=== PATIENT | male | born 1955 | race Caucasian/White ===

== ENCOUNTER 2019-02-03 10:28 | Observation (INO) | payer MEDICARE, OTHER ==
[2019-02-03] VITALS (24 sets, daily range): BP systolic 97–155; BP diastolic 52–97; PULSE 62–100; RESP 14–20; Ht 177.8 cm; Wt 72.0 kg
[~2019-02-03] VITALS: Ht 177.8 cm; Wt 72.0 kg
[~2019-02-03 10:28] MED LIST: SEVOFLURANE 15 MIN ONE; SUCCINYLCHOLINE CHLORIDE 100 MG/5 ML SYG IV ONE
[2019-02-03] MEDS ORDERED: INSU100I12 SQ (11:03)
[2019-02-03] MEDS ORDERED: TRAM50TA2 ORAL (11:03)
[2019-02-03] MEDS ORDERED: LACTATED RINGER'S 1,000 ML IV SCH (11:30)
[2019-02-03] MEDS ORDERED: INSULIN REGULAR, HUMAN 100 UNIT/1 ML 3ML VIAL SC ONE (11:30)
--- NOTE | 2019-02-03 12:36 | HPN ---
Date/Time of Note Date/Time of Note DATE: 02/03/19 TIME: 12:36 Interval H&P Admission Note Pt. seen H&P reviewed: No system changes MIGUELITO HER MD February 03, 2019 12:36
--- NOTE | 2019-02-03 12:43 | PREAC ---
Date/Time of Note Date/Time of Note DATE: 02/03/19 TIME: 12:02 Anesthesia Eval and Record Evaluation Time Pre-Procedure Interview DATE: 02/03/19 TIME: 12:02 Age 63 Sex male NPO: 8 hrs Preoperative diagnosis Prostate Ca Planned procedure TURP Past Medical History Past Medical History: Includes Cardio: HTN, CAD, PTCA/Stent, Other (Pt not on plavix, reports is not required. Seen healthcare network consultant last week, cleared. denies cp on exertion. ) Endo: Diabetes Heme: Other (H/o DVT) Surgery & Anesthesia Issues No known issue Meds Anticoagulation: No Beta [place] within 24 hr: No Reason Beta [place] not given: Pt. not on B-[place] Reported Medications Insulin Lispro (Humalog Kwikpen U-100) 100 Unit/1 Ml Insuln.pen, 6 UNIT SQ TIDM A, EA 02/03/19 Tramadol HCl (Tramadol HCl) 50 Mg Tablet, 1 TAB ORAL TID 02/03/19 Current Medications Lactated Ringer's 1,000 ml @ 30 mls/hr Q24H IV Last administered on 02/03/19at 11:36; Admin Dose 30 MLS/HR; Start 02/03/19 at 11:30 Meds reviewed: Yes Allergies Coded Allergies: ibuprofen (Verified Allergy, Severe, anaphylactic shock, 02/03/19) Allergies Reviewed: Yes Labs/Studies Labs Reviewed: Reviewed by anesthesiologist test: N/A Studies: ECG Pre-procedure Exam Last vitals Vital Signs Date Temp Pulse Resp B/P (MAP) Pulse Ox O2 O2 Flow FiO2 Time Delivery Rate 02/03/19 97.7 100 16 124/76 98 Room Air 11:42 (92) Airway: Adequate mouth opening Mallampati: Mallampati II Teeth: Abnormal (adentulous) Lung: Normal Heart: Normal ASA Physical Status ASA physical status: 3 Emergency: None Planned Anesthetic General/MAC: LMA Pre-operative Attestations Prior to commencing anesthesia and surgery, the patient was re-evaluated, there was verification of: *The patient's identity *The results of appropriate recent lab work and preoperative vital signs *The above evaluation not changing prior to induction *Anesthetic plan, risk benefits, alternative and complications discussed with patient/family; questions answered; patient/family understands, accepts and wishes to proceed. NELL LIM MD February 03, 2019 12:13
[2019-02-03] MEDS ORDERED: LIDOCAINE 2% (SDV) 5 ML INJ ONE (12:52)
[2019-02-03] MEDS ORDERED: MIDAZOLAM 1 MG/ML 2 ML INJ ONE ×2 (12:52→13:23)
[2019-02-03] MEDS ORDERED: PROPOFOL 20 ML ONE (12:52)
[2019-02-03] MEDS ORDERED: FENTAnyl 50 MCG/ML VIAL ONE ×2 (12:52→13:38)
[2019-02-03] MEDS ORDERED: CEFAZOLIN 1 GM INJ ONE (12:52)
[2019-02-03] MEDS ORDERED: CEFTRIAXONE 1 GM INJ IVPB ONE (13:00)
[2019-02-03] MEDS ORDERED: CEFTRIAXONE 1 GM/50 ML (PMX) 50 ML IVPB SCH (13:00)
[2019-02-03] MEDS ORDERED: ROCURONIUM 50 MG INJ ONE (13:06)
[2019-02-03] MEDS ORDERED: ONDANSETRON 4 MG INJ ONE (13:06)
[2019-02-03] MEDS ORDERED: DEXAMETHASONE 4 MG/ML 5 ML INJ ONE (13:06)
[2019-02-03] MEDS ORDERED: PHENYLephrine (100 MCG/ML) 10ML SYG ONE (13:26)
[2019-02-03] MEDS ORDERED: MEPERIDINE 25 MG INJ IV PRN (14:00)
[2019-02-03] MEDS ORDERED: ONDANSETRON 4 MG INJ IV PRN ×2 (14:00→15:30)
[2019-02-03] MEDS ORDERED: DIPHENHYDRAMINE 50 MG INJ IV PRN (14:00)
[2019-02-03] MEDS ORDERED: HYDROmorphONE 1 MG/5 ML IV SYRINGE IV PRN (14:00)
[2019-02-03] MEDS ORDERED: SUGAMMADEX SODIUM 200 MG/2 ML VIAL IV ONE (14:18)
[2019-02-03] MEDS ORDERED: DEXTROSE 5%-0.45% NACL 1,000 ML IV SCH (14:35)
--- NOTE | 2019-02-03 14:35 | OPR ---
Date/Time of Note Date/Time of Note DATE: 02/03/19 TIME: 14:28 Operative Report Procedure Date: February 03, 2019 Preoperative Diagnosis Urinary retention, metastatic prostate cancer. Postoperative Diagnosis Same pending pathology report Operation/Procedure Performed Transurethral resection of the prostate Surgeon see signature line Engineering Scientist Aminah Monaco Anesthesia Type: general Anesthesiologist: NELL LIM MD Estimated Blood Loss: 10 - 50 ml's Transfusion none Specimen Prostatic tissue and prostatic stones Grafts/Implants none Complications none Pt Condition Post Procedure: stable Disposition: PACU Indications Urinary retention and patient failed multiple attempts to discontinue the Cheema catheter and see if he urinates on his own. Patient does have metastatic prostate cancer. Procedure Description The patient was brought to the operating room and general anesthesia was induced. Timeout was done, the patient was identified by his name, birthdate and the procedure. The patient was given 1 g of ceftriaxone IV at the start of the procedure. The old Cheema catheter that he had was removed. The genital area was then prepped and draped in the usual sterile manner. Cystoscopy was done with a 22 Serbian cystoscope and it showed prostatic enlargement with obstruction. The bladder was trabeculated. There was no bladder tumors or ston es. The cystoscope was then removed and the urethra was dilated with the Javier dilators up to #30 Serbian. The 26 Serbian bipolar resectoscope sheath was then introduced under direct vision through the penile urethra all the way to the bladder. Then the resection of the prostate was started. The patient was given 5 mL of indigo carmine to help visualize the ureteral orifices. First the median lobe was resected then the right lateral lobe then the left lateral lobe and finally the anterior lobe as well as apical tissue. The patient had numerous stones inside his prostate and all of these were removed and it drained out. All the bleeders were electrocoagulated. All the prostatic chips were evacuated. Good hemostasis was obtained. The ureteral orifices as well as external sphincter were intact and safeguarded during the whole procedure. At the end of the procedure the resectoscope was removed and #24 Serbian three-way Cheema catheter was inserted into the bladder. The balloon was inflated with 60 mL of sterile water. The catheter was connected to a drainage bag and continuous bladder irrigation was started in the operating room with normal saline. The patient was transferred to the recovery room in stable and satisfactory condition. MIGUELITO HER MD February 03, 2019 14:35
[2019-02-03] MEDS: HYDROmorphONE 1 MG/5 ML IV SYRINGE IV PRN ×4 (15:02→15:55)
--- NOTE | 2019-02-03 15:07 | PAC ---
Date/Time of Note Date/Time of Note DATE: 02/03/19 TIME: 15:07 Post-Anesthesia Notes Post-Anesthesia Note Last documented vital signs Vital Signs Date Temp Pulse Resp B/P (MAP) Pulse Ox O2 O2 Flow FiO2 Time Delivery Rate 02/03/19 98.5 14:40 02/03/19 100 16 124/76 98 Room Air 11:42 (92) Activity: WNL Respiratory function: WNL Cardiovascular function: WNL Mental status: Baseline Pain reasonably controlled: Yes Hydration appropriate: Yes Nausea/Vomiting absent: Yes NELL LIM MD February 03, 2019 15:07
[2019-02-03] MEDS ORDERED: GLUCOSE GEL 15 GRAM TUBE BUCCAL PRN (15:30)
[2019-02-03] MEDS ORDERED: DEXTROSE 50% 50 ML SYRINGE IV PRN ×2 (15:30)
[2019-02-03] MEDS ORDERED: GLUCAGON 1 MG INJ IM PRN (15:30)
[2019-02-03] MEDS ORDERED: HYDROmorphONE 1 MG/ML SYG IV PRN (15:30)
[2019-02-03] MEDS ORDERED: GLUCOSE GEL 15 GRAM TUBE PO PRN ×2 (15:30)
--- NOTE | 2019-02-03 15:36 | HP ---
Date/Time of Note Date/Time of Note DATE: 02/03/19 TIME: 15:19 Assessment/Plan VTE Prophylaxis Risk score (from Nsg)>0 risk: 2 SCD applied (from Ns): Yes Pharmacological prophylaxis: NA/contraindicated Pharm contraindication: surgical contra Lines/Catheters IV Catheter Type (from Nrsg): Peripheral IV Urinary Cath still in place: Yes Reason Cath still needed: other (indicate) (continuous bladder irrigation. ) Assessment/Plan Assessment/Plan 63 yo man with history of IDDM, HTN, CAD with 2 stents and history of DC presents with metastatic prostate cancer after TURP. #Metastatic prostate cancer #Obstructive uropathy - s/p TURP 02/03 - Continuous bladder irrigation - I'm concerned about this patient's pain. He reports taking tramadol at least 200 mg per day prior to surgery for cancer-related pain. - Will start postoperative [place] and IV dilaudid. I anticipate this patient may have high opioid requirements after discharge, so will start MS Contin 15u BID tonight. Can titrate up if needed, otherwise can D/C. #IDDM - Continue prior insulin regimen: - glargine 15 u qhs, lispro 6 u TIDWM - Also insulin sliding scale. #HTN - Currently normotensive. Patient reports being off meds for weeks. - Home meds were valsartan 40mg daily, carvedilol 12.5 BID, isosorbide dinitrate 20mg daily. #Dyslipidemia - Resume statin. #Nicotine use - Patient smokes 2 packs per day - Nicotine patch while inpatient. DVT: SCDs GI: None HPI/ROS Admit Date/Time Admit Date/Time 03 Feb 2019 Hx of Present Illness Mr. Perez is a 63 yo man admitted after scheduled TURP by Dr. Tapia. The patient was recently diagnosed with metastatic prostate cancer. Recent outpatient CT shows large irregular prostate gland with several osseus lesions most dense in the right hemipelvis; several retroperitoneal and pelvic lymph nodes. A few weeks ago he developed gradually progressive obstructive uropathy, and recently was unable to urinary altogether. Dr Tapia scheduled him for a TURP. The patient has history of CAD with DC requiring 2 stents placed in 2013. For about 6 weeks he has been off all medications including insulin because "I just don't really care". He is on tramadol for cancer-related pain, he has been taking 50mg x4 tabs daily. Also smoking marijuana daily for pain. Prior to surgery random blood glucose was in the 300s. Got 10 units regular insulin, decreased to 250 then 165. Postoperatively the patient is in considerable pain, even after aggressive IV opioid analgesia in the PACU. History is limited. ROS 12 point review of systems done, negative except per HPI. PMH/Family/Social Past Medical History Insulin-dependent diabetes Hypertension CAD s/p DC in 2013, PCI x2 stents placed. Medications Current Medications Lactated Ringer's 1,000 ml @ 30 mls/hr Q24H IV Last administered on 02/03/19at 11:36; Admin Dose 30 MLS/HR; Start 02/03/19 at 11:30 Ceftriaxone Sodium 50 ml @ 100 mls/hr PREOP IVPB ; Start 02/03/19 at 13:00; Stop 02/03/19 at 16:00 Hydromorphone HCl (Dilaudid) 0.2 mg PACU PRN IV MILD PAIN 1-3; Start 02/03/19 at 14:00; Stop 02/03/19 at 18:00 Hydromorphone HCl (Dilaudid) 0.4 mg PACU PRN IV MOD PAIN 4-6 Last administered on 02/03/19at 15:12; Admin Dose 0.4 MG; Start 02/03/19 at 14:00; Stop 02/03/19 at 18:00 Hydromorphone HCl (Dilaudid) 0.6 mg PACU PRN IV SEVERE PAIN 7-10 Last administered on 02/03/19at 15:02; Admin Dose 0.6 MG; Start 02/03/19 at 14:00; Stop 02/03/19 at 18:00 Ondansetron HCl (Zofran Inj) 4 mg PACU ORDER PRN IV NAUSEA/VOMITING Last administered on 02/03/19at 15:02; Admin Dose 4 MG; Start 02/03/19 at 14:00; Stop 02/03/19 at 18:00 Meperidine HCl (Demerol) 25 mg PACU ORDER PRN IV .RIGORS Last administered on 02/03/19at 15:02; Admin Dose 25 MG; Start 02/03/19 at 14:00; Stop 02/03/19 at 18:00 Diphenhydramine HCl (Benadryl) 25 mg PACU ORDER PRN IV .PRURITUS; Start 02/03/19 at 14:00; Stop 02/03/19 at 18:00 Dextrose/Sodium Chloride 1,000 ml @ 50 mls/hr Q20H IV ; Start 02/03/19 at 14:35 Ciprofloxacin (Cipro) 500 mg BID@06,18 PO ; Start 02/03/19 at 18:00 Ondansetron HCl (Zofran Inj) 4 mg Q6H PRN IV NAUSEA/VOMITING; Start 02/03/19 at 15:30 Acetaminophen/ Hydrocodone Bitart ([place] ()) 1 tab Q4H PRN PO MODERATE PAIN LEVEL 4-6; Start 02/03/19 at 15:30 Hydromorphone HCl (Dilaudid) 1 mg Q4H PRN IV BREAKTHROUGH PAIN; Start 02/03/19 at 15:30 Diagnostic Test (Pha) (Accu-Chek) 1 ea 02 XX ; Start 02/04/19 at 02:00 Insulin Glargine (Lantus) 15 units DAILY@2000 SC ; Start 02/03/19 at 20:00; Status UNV Insulin Aspart (Novolog Insulin Pen) 6 unit WITH MEALS SC ; Start 02/03/19 at 18:00; Status UNV Miscellaneous Information (* Miscellaneous Pharmacy Order) HYPOGLYCEMIA PROTOCOL w... ONCE ONCE XX ; Start 02/03/19 at 15:30; Stop 02/03/19 at 15:31 Insulin Aspart (Novolog Insulin Pen) NOVOLOG *MODERATE* ALGORITHM WITH MEALS BEDTIME SC ; Start 02/03/19 at 18:00; Status UNV Miscellaneous Information 1 ea NOTE XX ; Start 02/03/19 at 15:30 Glucose (Glutose) 15 gm Q15M PRN PO DECREASED GLUCOSE; Start 02/03/19 at 15:30 Glucose (Glutose) 22.5 gm Q15M PRN PO DECREASED GLUCOSE; Start 02/03/19 at 15:30 Dextrose (D50w Syringe) 25 ml Q15M PRN IV DECREASED GLUCOSE; Start 02/03/19 at 15:30 Dextrose (D50w Syringe) 50 ml Q15M PRN IV DECREASED GLUCOSE; Start 02/03/19 at 15:30 Glucagon (Glucagen) 1 mg Q15M PRN IM DECREASED GLUCOSE; Start 02/03/19 at 15:30 Glucose (Glutose) 15 gm Q15M PRN BUCCAL DECREASED GLUCOSE; Start 02/03/19 at 15:30 Coded Allergies: ibuprofen (Verified Allergy, Severe, anaphylactic shock, 02/03/19) Past Surgical History TURP 02/03/19 Social History Alcohol Use: rarely Smoking Status: Current every day smoker (2 packs per day) Drug Use: marijuana (daily, for pain.) Exam/Review of Systems Vital Signs Vitals Vital Signs Date Temp Pulse Resp B/P (MAP) Pulse Ox O2 O2 Flow FiO2 Time Delivery Rate 02/03/19 98.5 14:40 02/03/19 100 16 124/76 98 Room Air 11:42 (92) Exam Exam Gen: Well developed man in [facility] in considerable discomfort. Eyes: PERRL, no icterus HEENT: Moist mucous membranes, clear oropharynx Neck: No lymphadenopathy, supple Card: Tachy, regular rhythm, no murmurs Pulm: Clear to auscultation bilaterally Abd: Guarding, nondistended. Ext: No cyanosis/clubbing/edema : Cheema in place with continuous bladder irrigation. SAULO GARIBAY MD February 03, 2019 15:30
[2019-02-03] MEDS ORDERED: HYDROCODONE/APAP (5/325) TAB ONE (16:01)
[2019-02-03] MEDS ORDERED: HYDROCODONE/APAP (5/325) TAB PO ONE (16:30)
[2019-02-03] MEDS: NICOTINE (21 MG/24 HR) PATCH TRANSDERM SCH (16:48)
[2019-02-03] MEDS: CIPROFLOXACIN 500 MG TAB PO SCH (17:27)
[2019-02-03] MEDS ORDERED: SOD CHLORIDE 0.45% 1,000 ML IV SCH (17:30)
[2019-02-03] MEDS: INSULIN ASPART [NOVOLOG] 3 ML PEN SC SCH ×3 (17:54→20:47)
[2019-02-03] MEDS ORDERED: INSULIN GLARGINE [LANTus] (100 UNITS/ML) SYG SC SCH (20:00)
[2019-02-03] MEDS: HYDROCODONE/APAP (10/325) TAB PO PRN (20:48)
[2019-02-03] MEDS ORDERED: ATORVASTATIN 20 MG TAB PO SCH (21:00)
[2019-02-03] MEDS: morphine (ER) 15 MG TAB PO SCH (21:54)
[2019-02-04] VITALS: BP 152/87; PULSE 67; RESP 20
[2019-02-04] MEDS: HYDROCODONE/APAP (10/325) TAB PO PRN ×2 (00:50→05:15)
[2019-02-04] MEDS ORDERED: ACCU-CHEK XX SCH (02:00)
[2019-02-04 05:00] VITALS: BP 134/61; PULSE 61; RESP 20
[2019-02-04] MEDS: CIPROFLOXACIN 500 MG TAB PO SCH (05:15)
[2019-02-04 07:39] VITALS: BP 137/77; PULSE 60; RESP 15
[2019-02-04] MEDS: NICOTINE (21 MG/24 HR) PATCH TRANSDERM SCH (08:34)
[2019-02-04] MEDS: morphine (ER) 15 MG TAB PO SCH (08:35)
[2019-02-04] MEDS: INSULIN ASPART [NOVOLOG] 3 ML PEN SC SCH ×4 (08:36→12:59)
--- NOTE | 2019-02-04 09:53 | PN ---
Date/Time of Note Date/Time of Note DATE: 02/04/19 TIME: 09:49 Assessment/Plan Lines/Catheters IV Catheter Type (from Nrs): Peripheral IV Alanis in Place (from Nrs): Yes Cont'd alanis catheter reason: other (indicate) (Urological surgery) Assessment/Plan Chief Complaint/Hosp Course 63-year-old male who was diagnosed with prostate cancer. He has had urinary retention and failed many attempts to remove the Alanis catheter and urinate on h is own. He underwent transurethral resection of the prostate on 02/03/2019. He did have a bone scan and a CAT scan prior to his surgery and these did show metastatic disease. He did also receive 22.5 mg Lupron Depot injection before the surgery in the office. He is doing well postop. I did discuss with him the results of the bone scan and the CAT scan and the treatment of his cancer. We will stop the bladder irrigation and encourage him to drink a lot of water and if the urine is reasonably clear he may be discharged home this afternoon and come to the office next week on Wednesday or to have the catheter removed. Subjective 24 Hr Interval Summary Patient is comfortable. He had hard time sleeping earlier in the evening but he slept well after that. He denies any severe pain. Occasionally he does get bladder spasms. Exam/Review of Systems Vital Signs Vitals Vital Signs Date Temp Pulse Resp B/P (MAP) Pulse Ox O2 O2 Flow FiO2 Time Delivery Rate 02/04/19 97.8 60 15 137/77 99 Room Air 07:39 (97) 02/03/19 6.0 15:05 Intake and Output 02/03/19 02/03/19 02/04/19 1515:00 23:00 07:00 IntakeIntake Total 1600 ml 365 ml 1810 ml OutputOutput Total 5 ml 2500 ml 1900 ml BalanceBalance 1595 ml -2135 ml -90 ml Exam Free Text/Dictation Abdomen is soft. The Alanis catheter is draining blood-tinged urine. There are no clots Results Result Diagram: 02/04/19 0443 02/04/19 0443 MIGUELITO HER MD February 04, 2019 09:53
[2019-02-04] MEDS ORDERED: NICOTINE (21 MG/24 HR) PATCH TRANSDERM SCH (12:00)
[2019-02-04] MEDS ORDERED: NICO-546 TRANSDERM (12:00)
--- NOTE | 2019-02-04 12:01 | PDOCDIS ---
Discharge Instructions CONDITION [id number] Patient Condition: [id number] Good HOME CARE INSTRUCTIONS: [id number] Special Diet: [id number] DIABETIC ACTIVITY: [id number] Activity Restrictions: [id number] Slowly Increase Activity Rest between Activity Avoid heavy lifting Do not Drive Avoid Heavy Housework [id number] Bathing Restrictions: [id number] Shower FOLLOW UP/APPOINTMENTS Follow-up Plan FOLLOW UP WITH YOUR PCP, ENVIRONMENTAL PROTECTION SPECIALIST AND ONCOLOGIST CALI TELLEZ February 04, 2019 12:01
--- NOTE | 2019-02-04 14:32 | DS ---
Date/Time of Note Date/Time of Note DATE: 02/04/19 TIME: 14:28 Discharge Summary Admission/Discharge Info Admit Date/Time February 03, 2019 at 14:38 Discharge Date/Time February 04, 2019 at 13:23 Discharge Diagnosis 63 yo man with history of IDDM, HTN, CAD with 2 stents and history of [place] presents with metastatic prostate cancer after TURP #Metastatic prostate cancer -Patient follow-up with oncology #Obstructive uropathy - s/p TURP 02/03 -Status post continuous bladder irrigation -DC with [place] per urology #IDDM -A1c 12.1 -Patient is poorly compliant, has insulin at home but has not been taking compliance urged #HTN - Currently normotensive. Patient reports being off meds for weeks. - Home meds were valsartan 40mg daily, carvedilol 12.5 BID, isosorbide dinitrate 20mg daily. #Dyslipidemia - Resume statin. #Nicotine use - Patient smokes 2 packs per day -DC with nicotine patch Patient Condition: Good Hospital Course Patient is a 63 yo man with history of IDDM, HTN, CAD with 2 stents and history of [place] as well as a recent obstructive uropathy with findings of metastatic prostate cancer, patient was admitted for an elective TURP. Patient received continuous bladder irrigation and was cleared for DC per urology. Patient is to follow-up with oncology for further treatment. Patient's diabetes was noted to be poorly controlled with A1c of 12.1, patient has reportedly been noncompliant with all of his medications as of the last several months due to personal issues. Compliance was strongly advised. On day of discharge patient vitals, labs and physical exam are stable. Home Meds Active Scripts Nicotine* (Nicotine* Patch) 21 mg/day Patch, 1 PATCH TRANSDERM DAILY, #60 PATCH Prov:ROSALINDACALI 02/04/19 Reported Medications Insulin Lispro (Humalog Kwikpen U-100) 100 Unit/1 Ml Insuln.pen, 6 UNIT SQ TIDM A, EA 02/03/19 Tramadol HCl (Tramadol HCl) 50 Mg Tablet, 1 TAB ORAL TID 02/03/19 Follow-up Plan FOLLOW UP WITH YOUR PCP, ENGINEERING SURVEYOR AND ONCOLOGIST Primary Care Provider Not On Staff Doctor Time spent on discharge: > 30 minutes CALI TELLEZ February 04, 2019 14:32
== END 2019-02-04 13:23 | disposition home or self-care (01) ==
LOC: SDS 10:28 → SUATTDRO 14:30 → SDS 14:38 → REC 14:38 → MS1 16:18
PROVIDERS: ADMIT Internal Medicine; ATTEND Internal Medicine
DX: C61 Malignant neoplasm of prostate (principal); N42.0 Calculus of prostate; E11.9 Type 2 diabetes mellitus without complications; Z79.4 Long term (current) use of insulin; I10 Essential (primary) hypertension; E78.5 Hyperlipidemia, unspecified; I25.10 Atherosclerotic heart disease of native coronary artery without angina pectoris; Z95.5 Presence of coronary angioplasty implant and graft; F17.200 Nicotine dependence, unspecified, uncomplicated
CPT/HCPCS: 52601; 80048; 82962; 83036; 85025; 87086; 88305; G0378; J0696; J1100; J1170; J1815; J2175; J2250; J2370; J2405; J3010; J7120; J0690; J7042